=== PATIENT | male | born 1985 | race Hispanic/Latino ===

== ENCOUNTER 2018-04-06 08:40 | Emergency (ER) | payer SELFPAY ==
[~2018-04-06] VITALS: Ht 162.6 cm; Wt 77.3 kg
[2018-04-06] MEDS ORDERED: COLCHICINE0.6 M2 PO (09:05)
[2018-04-06] MEDS ORDERED: MOTRIN400 MG PO (09:05)
[2018-04-06 09:17] VITALS: BP 131/84
== END 2018-04-06 09:26 | disposition home or self-care (01) | DRG 556 ==
LOC: ED 08:40
DX: M25.562 Pain in left knee (principal); M10.9 Gout, unspecified

== ENCOUNTER 2021-06-01 21:34 | Emergency (ER) | payer SELFPAY ==
[~2021-06-01] VITALS: Ht 162.6 cm; Wt 72.0 kg
[~2021-06-01 21:34] MED LIST: COLCHICINE0.6 M2 PO; MOTRIN400 MG PO
[2021-06-01 22:38] VITALS: BP 129/85
[2021-06-01 22:46] LABS: HEMATOCRIT 38.4 % (39.0-50.0); HEMOGLOBIN 12.8 g/dl (14.0-18.0); IMMATURE GRANULOCYTES 0.2 % (0.0-5.0); MEAN CELL VOLUME 101.1 fL CALC (80.0-100.0); MEAN CORPUSCULAR HGB 33.7 pG CALC (26.0-32.0); MEAN CORPUSCULAR HGB CONC 33.3 g/dL CAL (32.0-36.0); NEUT# 2.41 thou/uL (1.82-7.42); RED BLOOD COUNT 3.8 mill/uL (4.70-6.10); RED CELL DISTRI WIDTH 13.5 % (11.5-15.5)
[2021-06-01 23:00] VITALS: BP 110/67
[2021-06-01 23:02] LABS: ALBUMIN 3.9 g/dL (3.2-5.0); ALKALINE PHOSPHATASE 142 u/l (38-126); ANION GAP 17 (6-22 (CALC)); BILIRUBIN, TOTAL 0.3 mg/dL (0.0-1.4); BUN 8 mg/dL (9-20); BUN/CREATININE RATIO 11 (12-20 (CALC)); CARBON DIOXIDE 21 mmol/l (22-30); CHLORIDE 109 mmol/l (95-108); CREATININE 0.8 mg/dL (0.7-1.3); GFR > 60 ML/MIN (>=60 (CALC)); GFR FOR AFR.AMER. > 60 ML/MIN (>=60 (CALC)); POTASSIUM 4.1 mmol/l (3.5-5.1); SGOT/AST 108 u/l (17-59); SODIUM 142 mmol/l (137-146)
[2021-06-01] MEDS ORDERED: VOLTAREN - GENE75 MG PO (23:21)
[2021-06-01 23:30] VITALS: BP 104/60
[2021-06-02 00:02] VITALS: BP 104/60
== END 2021-06-02 00:02 | disposition home or self-care (01) | DRG 554 ==
LOC: ED 21:34
PROVIDERS: Family Medicine
DX: M17.11 Unilateral primary osteoarthritis, right knee (principal); M10.9 Gout, unspecified